=== PATIENT | female | born 1980 | race Caucasian/White ===

== ENCOUNTER 2017-06-16 01:04 | Emergency (ER) | payer MEDICAID ==
[2017-06-16] MEDS: ONDANSETRON (ODT) 4 MG TAB ODT (07:19)
[2017-06-16] MEDS: ACETAMINOPHEN 500 MG TAB PO (07:27)
[2017-06-16] MEDS: ONDANSETRON 4 MG INJ IM (08:00)
== END 2017-06-16 08:38 | disposition home or self-care (01) ==
LOC: FTE 01:04
DX: R11.2 Nausea with vomiting, unspecified (principal); R19.7 Diarrhea, unspecified
CPT/HCPCS: 96372; 99284-25

== ENCOUNTER 2018-01-09 17:37 | Emergency (ER) | payer MEDICAID ==
[2018-01-09] MEDS: ONDANSETRON (ODT) 4 MG TAB ODT (19:19)
[2018-01-09] MEDS: MECLIZINE 12.5 MG TAB PO (19:20)
== END 2018-01-09 21:14 | disposition home or self-care (01) ==
LOC: FTE 17:37
DX: R42 Dizziness and giddiness (principal); R11.0 Nausea
CPT/HCPCS: 70450; 81025; 99284-25

== ENCOUNTER 2018-02-20 18:16 | Emergency (ER) | payer MEDICAID ==
[2018-02-20] MEDS ORDERED: CLINDAMYCIN 600 MG INJ IM (19:30)
[2018-02-20] MEDS: LIDOCAINE 1% (MPF) 5 ML VIAL INJ (20:08)
[2018-02-20] MEDS: LIDOCAINE 1% (MDV) 10 ML INJ INFIL (20:08)
[2018-02-20] MEDS: CLINDAMYCIN 300 MG INJ IM (20:08)
== END 2018-02-20 20:28 | disposition home or self-care (01) ==
LOC: FTE 18:16
DX: K04.7 Periapical abscess without sinus (principal)
CPT/HCPCS: 41800; 96372; 99284-25

== ENCOUNTER 2018-03-12 00:52 | Emergency (ER) | payer MEDICAID ==
[2018-03-12] MEDS: KETOROLAC 60 MG INJ IM (03:14)
== END 2018-03-12 05:45 | disposition home or self-care (01) ==
LOC: FTE 00:52
DX: M25.561 Pain in right knee (principal)
CPT/HCPCS: 73562; 81025; 96372; 99284-25

== ENCOUNTER 2018-12-03 23:27 | Emergency (ER) | payer MEDICAID ==
[2018-12-04] MEDS: KETOROLAC 30 MG INJ IV (01:34)
[2018-12-04 01:44] LABS: ADD MAN DIFF? NO
[2018-12-04 01:48] LABS: BASOPHIL # 0.1 10^3/ul (0.0-0.1); BASOPHILS % 0.3 % (0.0-2.0); EOSINOPHILS # 0.1 10^3/ul (0.0-0.5); EOSINOPHILS % 0.8 % (0.0-7.0); HEMATOCRIT 40.8 % (37.0-47.0); HEMOGLOBIN 13.2 g/dl (12.0-16.0); LYMPHOCYTES # 3.2 10^3/ul (0.8-2.9); LYMPHOCYTES % 20.4 % (15.0-51.0); MEAN CORPUSCULAR HEMOGLOBIN 29.5 pg (29.0-33.0); MEAN CORPUSCULAR HGB CONC 32.4 g/dl (32.0-37.0); MEAN CORPUSCULAR VOLUME 91.1 fl (82.0-101.0); MEAN PLATELET VOLUME 10.3 fl (7.4-10.4); MONOCYTE # 1.2 10^3/ul (0.3-0.9); MONOCYTES % 7.8 % (0.0-11.0); NEUTROPHIL # 11.1 10^3/ul (1.6-7.5); NEUTROPHILS % 70.3 % (39.0-77.0); PLATELET COUNT 287 10^3/UL (140-415); RED BLOOD COUNT 4.48 10^6/ul (4.20-5.40); RED CELL DISTRIBUTION WIDTH 13.7 % (11.5-14.5)
[2018-12-04 01:48] LABS: WHITE BLOOD COUNT 15.9 10^3/ul (4.8-10.8)
[2018-12-04 02:01] LABS: ADD UMIC YES; UR ASCORBIC ACID NEGATIVE (NEGATIVE); UR BACTERIA FEW /HPF (NONE SEEN); UR BILIRUBIN (Dip) NEGATIVE (NEGATIVE); UR BLOOD (Dip) 1+ mg/dL (NEGATIVE); UR CLARITY CLOUDY (CLEAR); UR COLOR YELLOW (YELLOW); UR GLUCOSE (Dip) NEGATIVE (NEGATIVE); UR KETONES (Dip) NEGATIVE (NEGATIVE); UR LEUKOCYTE ESTERASE (Dip) NEGATIVE Leu/ul (NEGATIVE); UR NITRITE (Dip) NEGATIVE (NEGATIVE); UR RBC 3 /HPF (0-5); UR SPECIFIC GRAVITY (Dip) 1.018 (1.003-1.030); UR SQUAMOUS EPITHELIAL CELL FEW /HPF (FEW); UR TOTAL PROTEIN (Dip) NEGATIVE (NEGATIVE); UR UROBILINOGEN (Dip) NEGATIVE (NEGATIVE); UR WBC 2 /HPF (0-5)
[2018-12-04 02:03] LABS: ALANINE AMINOTRANSFERASE 23 IU/L (13-69); ALBUMIN 4.4 g/dl (3.3-4.9); ALBUMIN/GLOBULIN RATIO 1.37; ALKALINE PHOSPHATASE 93 IU/L (42-121); ANION GAP 7 (5-13); ASPARTATE AMINO TRANSFERASE 18 IU/L (15-46); BILIRUBIN,INDIRECT 0.4 mg/dl (0-1.1); BILIRUBIN,TOTAL 0.4 mg/dl (0.2-1.3); BLOOD UREA NITROGEN 20 mg/dl (7-20); CALCIUM 9.8 mg/dl (8.4-10.2); CARBON DIOXIDE 29 mmol/L (21-31); CHLORIDE 105 mmol/L (97-110); CREATININE 0.74 mg/dl (0.44-1.00); Estimated GFR > 60 mL/min (>60); GLUCOSE 93 mg/dl (70-220); POTASSIUM 4.4 mmol/L (3.5-5.1); SODIUM 141 mmol/L (135-144); TOTAL PROTEIN 7.6 g/dl (6.1-8.1)
== END 2018-12-04 04:00 | disposition home or self-care (01) ==
LOC: FTE 23:27
DX: N39.0 Urinary tract infection, site not specified (principal)
CPT/HCPCS: 76775; 80053; 81001; 81025; 85025; 96374; 99285-25